=== PATIENT | male | born 1960 | race Two or more races ===

== ENCOUNTER → 2016-08-05 | Outpatient (CLI) | payer OTHER | END | disposition home or self-care (01) | LOC: NUC 08:26 | DX: M54.9 Dorsalgia, unspecified (principal) | CPT/HCPCS: 78227; A9537; J2805 ==

== ENCOUNTER 2016-09-12 07:48 | Emergency (ER) | payer OTHER ==
[~2016-09-12] VITALS: Ht 165.1 cm; Wt 88.3 kg
[2016-09-12 07:55] VITALS: BP 156/89
[2016-09-12] MEDS ORDERED: BACTRIM,SEPT1 TABLET PO (08:53)
[2016-09-12] MEDS ORDERED: LISINOPRIL5 MG PO (09:09)
[2016-09-12] MEDS ORDERED: ATORVASTATIN CA10 MG PO (09:09)
== END 2016-09-12 09:10 | disposition home or self-care (01) ==
LOC: EME 07:48
DX: M70.31 Other bursitis of elbow, right elbow (principal); Z91.81 History of falling; I10 Essential (primary) hypertension; E78.00 Pure hypercholesterolemia, unspecified
CPT/HCPCS: 73080; 99281; 99283

== ENCOUNTER → 2016-11-01 | Outpatient (CLI) | payer OTHER ==
[~2016-11-01] MED LIST: ATORVASTATIN CA10 MG PO; BACTRIM,SEPT1 TABLET PO; LISINOPRIL5 MG PO
== END | disposition home or self-care (01) ==
LOC: CDC 09:02
DX: R94.31 Abnormal electrocardiogram [ECG] [EKG] (principal); J34.2 Deviated nasal septum; J34.3 Hypertrophy of nasal turbinates
CPT/HCPCS: 93000

== ENCOUNTER → 2017-02-21 | Outpatient (CLI) | payer OTHER ==
[~2017-02-21] VITALS: Ht 165.1 cm; Wt 86.4 kg
== END | disposition home or self-care (01) ==
LOC: AMB 08:17
DX: K20.9 Esophagitis, unspecified (principal); K25.9 Gastric ulcer, unspecified as acute or chronic, without hemorrhage or perforation; Z12.11 Encounter for screening for malignant neoplasm of colon; D12.0 Benign neoplasm of cecum; K63.5 Polyp of colon; D12.8 Benign neoplasm of rectum; I10 Essential (primary) hypertension; E78.5 Hyperlipidemia, unspecified; Z87.442 Personal history of urinary calculi
CPT/HCPCS: 88305; 93005

== ENCOUNTER → 2017-04-29 | Outpatient (CLI) | payer OTHER | END | disposition home or self-care (01) | LOC: RAD 09:14 | DX: Z02.71 Encounter for disability determination (principal); M46.07 Spinal enthesopathy, lumbosacral region; M51.36 Other intervertebral disc degeneration, lumbar region | CPT/HCPCS: 72100; 73560 ==